=== PATIENT | male | born 1970 | race Caucasian/White ===

== ENCOUNTER 2024-08-19 04:38 | Emergency (ER) | payer BC ==
[2024-08-19] MEDS: Lidocaine 4% 1 each Patch TOP ONE (07:13)
[2024-08-19] MEDS: Acetaminophen 325 MG Tab PO ONE (07:13)
[2024-08-19] MEDS: oxyCODONE 5 MG Tab PO ONE (07:13)
[2024-08-19] MEDS: Ibuprofen 600 MG Tab PO ONE (07:13)
== END 2024-08-19 07:39 ==
LOC: MW.ED 04:38
DX: S22.41XA Multiple fractures of ribs, right side, initial encounter for closed fracture (principal); Z90.49 Acquired absence of other specified parts of digestive tract; W01.0XXA Fall on same level from slipping, tripping and stumbling without subsequent striking against object, initial encounter
CPT/HCPCS: 71250; 99285; A9270; 99283

== ENCOUNTER 2024-08-27 10:36 | Emergency (ER) | payer BC ==
[2024-08-27] MEDS ORDERED: Sodium Chloride 0.9% 2.5 ML Syringe FLUSH PRN (11:13)
[2024-08-27] MEDS: Ondansetron 4 MG/2 ML SDV IVPUSH ONE (11:38)
[2024-08-27] MEDS: Famotidine 20 MG/2 ML SDV IVPUSH ONE (11:38)
[2024-08-27] MEDS: Sodium Chloride 0.9% 1,000 ML IV ONE (11:38)
[2024-08-27] MEDS: Sodium Chloride 0.9% 10 ML Syringe FLUSH PRN (11:39)
[2024-08-27] MEDS: fentaNYL 50 MCG/ML SDV IVPUSH ONE (11:39)
[2024-08-27 11:57] LABS: GLUCOSE,URINE NEGATIVE (NEGATIVE); KETONES,URINE 40 mg/dL (NEGATIVE); LEUKOCYTE ESTERASE,URINE NEGATIVE (NEGATIVE); NITRITE,URINE NEGATIVE (NEGATIVE); OCCULT BLOOD,URINE NEGATIVE (NEGATIVE); PROTEIN,URINE 30 mg/dL (NEGATIVE)
[2024-08-27 11:58] LABS: BASOPHILS ABSOLUTE AUTO 0.05 K/uL (0.00-0.20); BASOPHILS PERCENT AUTO 0.5 % (0.0-1.0); EOSINOPHILS ABSOLUTE AUTO 0.16 K/uL (0.00-0.45); EOSINOPHILS PERCENT AUTO 1.7 % (0.0-6.0); HEMATOCRIT 48.6 % (42.0-52.0); HEMOGLOBIN 16.9 g/dL (14.0-18.0); IMMATURE GRAN ABSOLUTE AUTO 0.02 K/uL (0.00-0.05); IMMATURE GRAN PERCENT AUTO 0.2 % (0.0-0.4); LYMPHOCYTES ABSOLUTE AUTO 2.29 K/uL (1.00-4.80); LYMPHOCYTES PERCENT AUTO 24.7 % (24.0-44.0); MEAN CORPUSCULAR HEMOGLOBIN 30.2 pg (28.0-32.0); MEAN CORPUSCULAR HGB CONC 34.8 g/dL (32.0-36.0); MEAN CORPUSCULAR VOLUME 86.9 fL (83.0-99.0); MEAN PLATELET VOLUME 9.8 fL (9.4-12.4); MONOCYTES ABSOLUTE AUTO 0.65 K/uL (0.00-0.80); NEUTROPHILS PERCENT AUTO 65.9 % (41.0-71.0); PLATELET COUNT,PLT 289 K/uL (150-400); RED BLOOD CELL COUNT 5.59 M/uL (4.52-5.90); WHITE BLOOD CELL COUNT,WBC 9.27 K/uL (3.9-11.3)
[2024-08-27 12:02] LABS: APPEARANCE,URINE HAZY; BILIRUBIN,URINE SMALL (NEGATIVE); COLOR,URINE DARK YELLOW
[2024-08-27 12:10] LABS: BACTERIA,URINE FEW (NEGATIVE); EPITHELIAL CELLS,URINE OCCASIONAL (NONE-FEW); MUCUS,URINE LIGHT (NONE-MOD); RBC,URINE 0-2 (0-2/HPF); WBC,URINE 0-3 (0-5/HPF)
[2024-08-27 12:15] LABS: A/G RATIO 0.9 (0.9-1.6); ALBUMIN 3.7 g/dL (3.4-5.0); BILIRUBIN TOTAL 2.1 mg/dL (0.2-1.0); CALCIUM 9.3 mg/dL (8.5-10.1); CARBON DIOXIDE,CO2 28.2 mmol/L (21.0-32.0); CREATININE 0.8 mg/dL (0.8-1.3); EST CRCL DRUG DOSING (CG) 90.44 mL/min; POTASSIUM,K 3.7 mmol/L (3.5-5.1)
[2024-08-27] MEDS: Iopamidol 755 MG/ML 500 ML Multipack Bottle IVPUSH STA (12:57)
== END 2024-08-27 13:47 | disposition home or self-care (01) ==
LOC: MW.ED 10:36
DX: S22.31XA Fracture of one rib, right side, initial encounter for closed fracture (principal); R10.30 Lower abdominal pain, unspecified; Z75.8 Other problems related to medical facilities and other health care; Z90.49 Acquired absence of other specified parts of digestive tract; W11.XXXA Fall on and from ladder, initial encounter
CPT/HCPCS: 36415; 74177; 80053; 81001; 85025; 96361; 96374; 96375; 99284; J2405; J3010; J3490; J7030; Q9967

== ENCOUNTER 2024-10-29 09:06 | Day surgery (SDC) | payer BC ==
[2024-10-29] MEDS ORDERED: propofoL 500 MG/50 ML 50 ML ONE (09:29)
[2024-10-29] MEDS: Lactated Ringers 1,000 ML IV SCH (09:30)
[2024-10-29] MEDS ORDERED: Lidocaine 2% 5 ML SDV ONE (09:30)
[2024-10-29] MEDS ORDERED: Glycopyrrolate 0.2 MG/ML SDV ONE (09:43)
[2024-10-29] MEDS ORDERED: Lactated Ringers 1,000 ML IV SCH (10:15)
== END 2024-10-29 10:45 | disposition home or self-care (01) ==
LOC: MW.SDS 09:06
PROVIDERS: ATTEND Surgery
DX: Z12.11 Encounter for screening for malignant neoplasm of colon (principal); K57.30 Diverticulosis of large intestine without perforation or abscess without bleeding; Z80.0 Family history of malignant neoplasm of digestive organs; E66.9 Obesity, unspecified; Z68.41 Body mass index [BMI] 40.0-44.9, adult; F17.210 Nicotine dependence, cigarettes, uncomplicated
CPT/HCPCS: 45378; J1596; J2704; J7120; J3490